=== PATIENT | female | born 1970 | race Caucasian/White ===

== ENCOUNTER 2016-08-11 03:47 | Emergency (ER) | payer MEDICARE, OTHER ==
[~2016-08-11 03:47] MED LIST: ASPIRIN325 MG PO; B COMPLEX WITH1 EACH PO; BUPROPION HCL150 M1 PO; CLINDAMYCIN HC300 MG PO; HYDROXYZINE HCL50 MG PO; IBUPROFEN800 MG PO; LATUDA40 MG PO; LATUDA60 MG PO; LYRICA200 MG PO; MAGNESIUM400 MG PO; MELATONIN5 MG PO; MELOXICAM15 MG PO; MULTIVITAMINS1 EAC1 PO; NORCO 7.5-3251 EACH PO; PERCOCET 10-321 EACH PO; POTASSIUM GLUCONATE PO; PROTONIX 40 MG40 M1 PO; RED YEAST RICE600 MG PO; RIZATRIPTAN10 MG PO; SUDAFED 12 HOU120 MG PO; VITAMIN C PO
[2016-08-11 05:18] LABS: HEMOGLOBIN 13.1 gm/dl (12.3-15.3); RED BLOOD COUNT 4.27 M/UL (4.00-5.10)
[2016-08-11 05:32] LABS: WHITE BLOOD COUNT 15.3 K/UL (4.5-11.0)
[2016-08-11 05:40] LABS: BUN/CREATININE RATIO 14 (0-10)
== END 2016-08-11 07:20 | disposition home or self-care (01) ==
LOC: ER1 03:47
PROVIDERS: Family Medicine
DX: R11.2 Nausea with vomiting, unspecified (principal); Z90.49 Acquired absence of other specified parts of digestive tract; F17.200 Nicotine dependence, unspecified, uncomplicated; Z88.0 Allergy status to penicillin
CPT/HCPCS: 36415; 80053; 85025; 96374; 99284; J2405; J7120

== ENCOUNTER 2020-07-30 10:48 | Emergency (ER) | payer MEDICARE, OTHER ==
[~2020-07-30 10:48] MED LIST changes: +ARISTADA IM; +B COMPLEX1 EACH PO; +CALMOSEPTINE OI71 GM TD; +CLEOCIN HCL150 MG PO; +COMPAZINE10 MG PO; +ELIQUIS2.5 MG PO; +HYDROXYZINE HCL PO; +LEVAQUIN750 MG PO; +MELATONIN5 M2 PO; +MOBIC15 MG PO; +PERCOCET 5/325 T1 EA PO; +PROTONIX40 MG PO; +VOLTAREN100 GM TD; +WELLBUTRIN SR150 M1 PO; +ZANTAC150 MG PO
== END 2020-07-30 12:50 | disposition home or self-care (01) ==
LOC: ER1 10:48
DX: M54.5 Low back pain (principal); M25.559 Pain in unspecified hip; E11.9 Type 2 diabetes mellitus without complications; Z88.6 Allergy status to analgesic agent
CPT/HCPCS: 96372; 99283; J1100; J1885

== ENCOUNTER → 2020-08-08 | Outpatient (CLI) | payer MEDICARE, OTHER ==
[2020-08-08 10:58] LABS: HEMOGLOBIN 12.9 gm/dl (12.3-15.3); RED BLOOD COUNT 4.11 M/UL (4.00-5.10); WHITE BLOOD COUNT 9.7 K/UL (4.5-11.0)
[2020-08-09 10:14] LABS: VITAMIN D, 25-HYDROXY 65.4 ng/mL (30.0-100.0)
[2020-08-09 11:14] LABS: HCV ANTIBODY <0.1 (0.0-0.9)
== END ==
LOC: LAB 10:21
PROVIDERS: Nurse Practitioner Family
DX: Z11.59 Encounter for screening for other viral diseases (principal); K21.9 Gastro-esophageal reflux disease without esophagitis; G56.00 Carpal tunnel syndrome, unspecified upper limb; M54.9 Dorsalgia, unspecified; M25.50 Pain in unspecified joint; M54.2 Cervicalgia; G89.29 Other chronic pain; K76.0 Fatty (change of) liver, not elsewhere classified; E78.00 Pure hypercholesterolemia, unspecified; F31.9 Bipolar disorder, unspecified; E53.8 Deficiency of other specified B group vitamins; E55.9 Vitamin D deficiency, unspecified; Z91.89 Other specified personal risk factors, not elsewhere classified; Z79.899 Other long term (current) drug therapy
CPT/HCPCS: 36415; 80053; 80061; 80307; 82607; 84439; 84443; 85025; 86803; G0480

== ENCOUNTER → 2020-08-30 | Outpatient (CLI) | payer MEDICARE, OTHER ==
[2020-08-30 09:49] LABS: HEMOGLOBIN 13.6 gm/dl (12.3-15.3); RED BLOOD COUNT 4.36 M/UL (4.00-5.10)
[2020-08-30 10:10] LABS: BUN/CREATININE RATIO 15 (0-10)
== END ==
LOC: LAB 08:58
PROVIDERS: Nurse Practitioner Family
DX: M54.5 Low back pain (principal); M25.551 Pain in right hip; M25.552 Pain in left hip; E78.00 Pure hypercholesterolemia, unspecified; K76.0 Fatty (change of) liver, not elsewhere classified; K21.9 Gastro-esophageal reflux disease without esophagitis; G56.00 Carpal tunnel syndrome, unspecified upper limb; M54.9 Dorsalgia, unspecified; M54.2 Cervicalgia; G89.29 Other chronic pain; F31.9 Bipolar disorder, unspecified; E53.8 Deficiency of other specified B group vitamins; E55.9 Vitamin D deficiency, unspecified; M16.0 Bilateral primary osteoarthritis of hip; Z91.89 Other specified personal risk factors, not elsewhere classified; Z79.899 Other long term (current) drug therapy
CPT/HCPCS: 36415; 72100; 73502; 73522; 80053; 80061; 80307; 82607; 84439; 84443; 85025; G0480

== ENCOUNTER → 2020-12-01 | Outpatient (CLI) | payer MEDICARE, OTHER ==
[2020-12-01 14:17] LABS: RED BLOOD COUNT 4.1 M/UL (4.00-5.10); WHITE BLOOD COUNT 7.9 K/UL (4.5-11.0)
[2020-12-01 14:37] LABS: BUN/CREATININE RATIO 11 (0-10)
== END ==
LOC: LAB 11:27
PROVIDERS: Nurse Practitioner Family
DX: F41.0 Panic disorder [episodic paroxysmal anxiety] (principal); K21.9 Gastro-esophageal reflux disease without esophagitis; G56.00 Carpal tunnel syndrome, unspecified upper limb; M54.9 Dorsalgia, unspecified; M25.50 Pain in unspecified joint; M54.2 Cervicalgia; F31.9 Bipolar disorder, unspecified; K76.0 Fatty (change of) liver, not elsewhere classified; E78.00 Pure hypercholesterolemia, unspecified; E53.8 Deficiency of other specified B group vitamins; E55.9 Vitamin D deficiency, unspecified; E11.9 Type 2 diabetes mellitus without complications
CPT/HCPCS: 36415; 80053; 80061; 80076; 82607; 83036; 84439; 84443; 85025; 93005

== ENCOUNTER → 2021-01-19 | Outpatient (CLI) | payer MEDICARE, OTHER | LOC: RAD 11:04 | DX: M47.812 Spondylosis without myelopathy or radiculopathy, cervical region (principal) | CPT/HCPCS: 72040 ==

== ENCOUNTER 2021-03-18 08:19 | Emergency (ER) | payer MEDICARE, OTHER | END 2021-03-18 08:55 | disposition home or self-care (01) | LOC: ER1 08:19 | DX: L98.9 Disorder of the skin and subcutaneous tissue, unspecified (principal); F17.200 Nicotine dependence, unspecified, uncomplicated; Z90.49 Acquired absence of other specified parts of digestive tract; Z90.710 Acquired absence of both cervix and uterus; Z88.0 Allergy status to penicillin | CPT/HCPCS: 99283 ==

== ENCOUNTER 2021-03-26 06:25 | Emergency (ER) | payer MEDICARE, OTHER ==
[2021-03-26] MEDS ORDERED: CYCLOBENZAPRINE10 MG PO (07:15)
== END 2021-03-26 07:28 | disposition home or self-care (01) ==
LOC: ER1 06:25
DX: S29.012A Strain of muscle and tendon of back wall of thorax, initial encounter (principal); E78.5 Hyperlipidemia, unspecified; Z88.0 Allergy status to penicillin; Z88.8 Allergy status to other drugs, medicaments and biological substances; F17.210 Nicotine dependence, cigarettes, uncomplicated; X50.9XXA Other and unspecified overexertion or strenuous movements or postures, initial encounter
CPT/HCPCS: 99283; J1885